=== PATIENT | female | born 1990 | race Caucasian/White ===

== ENCOUNTER 2018-11-16 21:41 | Emergency (ER) | payer MEDICAID ==
[~2018-11-16] VITALS: Ht 162.6 cm; Wt 68.0 kg
[2018-11-16 21:44] VITALS: BP 112/67
--- NOTE | 2018-11-16 21:48 | NUR ---
PT AMBULATORY TO ER LOBBY W/ STEADY GAIT IN STABLE CONDITION.
--- NOTE | 2018-11-16 21:55 | NUR ---
PT TAKEN TO BED 10
[2018-11-16 22:14] LABS: APPEARANCE,URINE SL CLOUDY (CLEAR); BILIRUBIN,URINE NEGATIVE (NEGATIVE); BLOOD, URINE 1+ (NEGATIVE); COLOR,URINE YELLOW (YELLOW); LEUKOCYTE ESTERASE ,URINE TRACE (NEGATIVE); NITRITE, URINE NEGATIVE (NEGATIVE); UGLUCOSE NEGATIVE (NEGATIVE)
--- NOTE | 2018-11-16 22:16 | NUR ---
28 YO F BIB SELF AND FAMILY PRESENTS TO THE ED CO 6/10 [place]OUZA THAT IS DULL AND RADIATES TO THE NECK S/P FALL IN SHOWER 7 DAYS AGO. PT IS ALSO CO UTI SX: DYSURIA AND SUPRABUPIC DISCOMFORT. PT ALSO REPORTS THAT HER URINE APPEARS CLOUDY. -- PMH: DENIES -- RX: DENIES PT POSITIONED FOR COMFORT. HOB ELEVATED. SIDE RAIL UP X 1. BED IN LOWEST POSITION. VSS. NO APPARENT DISTRESS AT THIS TIME.
[2018-11-16 22:33] LABS: RBC,URINE 11-20 (MOD) /HPF (0-5)
--- NOTE | 2018-11-16 23:19 | NUR ---
PT TAKEN TO CT.
[2018-11-16] MEDS ORDERED: cefTRIAXone 1,000 MG in LIDOCAINE MPF 1% - 5 mL VIAL 2.1 ML IM ONE (23:55)
[2018-11-17] MEDS ORDERED: KETOROLAC 60 MG/2 ML VIAL IM ONE (00:25)
[2018-11-17 00:57] VITALS: BP 96/58
--- NOTE | 2018-11-17 00:57 | NUR ---
Patient discharged with v/s stable. Written and verbal after care instructions given and explained. Patient alert, oriented and verbalized understanding of instructions. Ambulatory with steady gait. All questions addressed prior to discharge. ID band removed. Patient advised to follow up with PMD. Rx of Tramadol, Macrobid, and Motrin given. Patient educated on indication of medication including possible reaction and side effects. Opportunity to ask questions provided and answered.
== END 2018-11-17 00:57 | disposition home or self-care (01) ==
LOC: MED 21:41
DX: S09.90XA Unspecified injury of head, initial encounter (principal); N39.0 Urinary tract infection, site not specified; Z88.5 Allergy status to narcotic agent; W18.2XXA Fall in (into) shower or empty bathtub, initial encounter; Y93.89 Activity, other specified; Y92.89 Other specified places as the place of occurrence of the external cause; Y99.8 Other external cause status
CPT/HCPCS: 70450; 81001; 81025; 87086; 96372; 96374; 99284; J0696; J1885; J2001